=== PATIENT | female | born 1945 | race Caucasian/White ===

== ENCOUNTER 2018-05-02 11:01 | Observation (INO) ==
--- NOTE | 2018-05-02 11:36 | ED ---
HPI General Chief Complaint: Chest Pain Stated Complaint: chest pain Time Seen by Provider: 05/02/18 11:27 Source: patient and RN notes reviewed Mode of arrival: ambulatory Limitations: no limitations History of Present Illness HPI narrative: 72-year-old female presents to the emergency department for evaluation of chest pain that started this morning. She states that after hinduism, she went home. She felt she had to have a bowel movement. After coming out of the bathroom she started with midsternal chest pressure and belching. Patient states that she went back and had a bowel movement, but the chest pain did not stop. She states that she was diaphoretic as well. She states that she had associated shortness of breath with the pain. She states on her way to the hospital, the pain mostly resolved. She currently has 1/10 pressure to the midsternal chest. Patient denies any exacerbating or alleviating factors. She has history of hypothyroidism and is on levothyroxine. She denies any other medical problems. Patient denies any alcohol, tobacco, drug use. Patient denies having any recent stress test or cardiac catheterization. She denies any recent surgery or travel. No leg edema. No hemoptysis. No history DVT or PE. MD complaint: chest pain Complete Quality Measures for STEMI Alert Patients STEMI Alert: No Onset (ago): hour(s) Duration: improved Onset: other (after going to [place]) Pain location: substernal Severity: moderate Severity scale (1-10): 1 Quality: heaviness Pain radiation: none Relieving factors: nothing Exacerbating factors: nothing Associated symptoms: diaphoresis Treatments prior to arrival chest pain: none Related Data Home Medications Medication Instructions Recorded Confirmed levothyroxine 75 mcg PO DAILY 05/02/18 05/02/18 Allergies Allergy/AdvReac Type Severity Reaction Status Date / Time No Known Allergies Allergy Unknown none Uncoded 05/02/18 11:21 Review of Systems ROS: all other systems reviewed are negative [facility] Medical History Medical History History of hysterectomy (Acute) Hypothyroid (Acute) Surgical History Surgical History History of cholecystectomy (Acute) Social History Social History Substance History: No History of Abuse Second Hand Smoke Exposure: No Smoking Status: Never smoker How Often Do You Have a Drink Containing Alcohol: Never Recent Travel in [facility] within the Last 8 Weeks: No Recent Out of Country Travel within the Last 8 Weeks: No Immunization History Tetanus Immunization: <5 Years Tetanus Immunization Year if Known: 04/10 Hx Influenza Vaccine This Season: Yes Exam Narrative Exam Narrative: GENERAL: Well-nourished, well-developed female patient, ambulatory. Afebrile. SKIN: Focused skin assessment warm/dry. HEAD: Normocephalic. Atraumatic. EYES: No scleral icterus. No injection or drainage. NECK: Supple, trachea midline. No JVD or lymphadenopathy. CARDIOVASCULAR: Regular rate and rhythm without murmurs, gallops, or rubs. Bilateral radial and pedal pulses are 2+ RESPIRATORY: Breath sounds equal bilaterally. No accessory muscle use. Lung sounds are clear to auscultation. GASTROINTESTINAL: Abdomen soft, non-tender, nondistended. MUSCULOSKELETAL: No cyanosis, or edema. BACK: Nontender without obvious deformity. No CVA tenderness. Course Initial Documented Vital Signs Temperature 97.5 F L 05/02/18 11:05 Pulse Rate 81 05/02/18 11:05 Respiratory Rate 16 05/02/18 11:05 Blood Pressure 146/60 H 05/02/18 11:05 Pulse Oximetry 100 05/02/18 11:05 Last Documented Vital Signs Temperature 97.5 F L 05/02/18 11:05 Pulse Rate 76 05/02/18 11:21 Respiratory Rate 16 05/02/18 11:21 Blood Pressure 168/78 H 05/02/18 11:21 Pulse Oximetry 98 05/02/18 11:39 Medical Decision Making MDM Narrative Medical decision making narrative: 72-year-old female presents to the emergency department for evaluation of chest pressure/heaviness that started today. He does appear well on exam. Patient is given aspirin 162 mg p.o. IV access is obtained. CBC, CMP, CK, troponin, magnesium, PTT, PT/INR, chest x-ray are ordered and pending. CBC shows leukocytosis of 14.2. CMP is unremarkable. CK is 47. Troponin is less than 0.02. Magnesium is 2.1. PTT is 25.4. PT/INR is 10.7/1.1. Chest x- ray is negative. Patient will be admitted to the chest pain center for further evaluation. She agrees to this. Medical Screen Exam Complete: Yes Emergency Medical Condition: Yes Differential Diagnosis Differential Diagnosis: ACS versus GERD versus chest wall pain versus anxiety versus pneumonia versus pneumothorax Medical Records Medical records reviewed: Yes I reviewed the patient's medical records. Lab Data Result diagrams: 05/02/18 11:45 05/02/18 11:45 Lab Results 05/02/18 05/02/18 05/02/18 Range/Units 11:45 11:45 11:45 WBC 14.2 H (4.0-11.0) th/mm3 RBC 4.96 (4.00-5.30) mil/mm3 Hgb 13.0 (11.6-15.3) gm/dL Hct 39.7 (35.0-46.0) % MCV 80.0 (80.0-100.0) fL MCH 26.3 L (27.0-34.0) pg MCHC 32.8 (32.0-36.0) % RDW 16.2 (11.6-17.2) % Plt Count 420 (150-450) th/mm3 MPV 7.2 (7.0-11.0) fL Neut % (Auto) 68.9 (16.0-70.0) % Lymph % (Auto) 22.6 (9.0-44.0) % [place] % (Auto) 7.0 (0.0-8.0) % Eos % (Auto) 0.9 (0.0-4.0) % Baso % (Auto) 0.6 (0.0-2.0) % Neut # (Auto) 9.8 H (1.8-7.7) th/mm3 Lymph # (Auto) 3.2 (1.0-4.8) th/mm3 [place] # (Auto) 1.0 H (0.0-0.9) th/mm3 Eos # (Auto) 0.1 (0.0-0.4) th/mm3 Baso # (Auto) 0.1 (0.0-0.2) th/mm3 WBC Differential . Differential Comment Auto diff final PT 10.7 (9.8-11.6) sec INR 1.1 Ratio APTT 25.4 (24.3-30.1) sec Sodium 138 (136-145) meq/L Potassium 3.8 (3.5-5.1) meq/L Chloride 102 (98-107) meq/L Carbon Dioxide 27.8 (21.0-32.0) meq/L Anion Gap 8 (5-15) meq/L BUN 12 (7-18) mg/dL Creatinine 0.82 (0.50-1.00) mg/dL Estimated GFR 68 L (>89) mL/min Random Glucose 88 (74-106) mg/dL Calcium 8.8 (8.5-10.1) mg/dL Magnesium 2.1 (1.5-2.5) mg/dL Total Bilirubin 0.4 (0.2-1.0) mg/dL AST 18 (15-37) U/L ALT 17 (10-53) U/L Alkaline Phosphatase 72 (45-117) U/L Total Creatine Kinase 47 (26-192) U/L Troponin I Less than 0.02 L (0.02-0.05) ng/mL Total Protein 7.9 (6.4-8.2) g/dL Albumin 3.1 L (3.4-5.0) g/dL Lipase 102 (73-393) U/L Imaging Data Radiologist's impression: Chest X-Ray 05/02/18 11:34 CONCLUSION: Negative examination. Discharge Plan Discharge Disposition Patient Disposition: 30 Still Patient Discharge Details Diagnosis: Chest pain Physicians Team ED Provider: [facility] ED Midlevel Provider: Merly Tripp Primary Care Provider: Umesh Aguirre Rxs /Orders / Referrals /Forms Prescriptions: No Action levothyroxine 75 mcg Tablet 75 mcg PO DAILY RF: 0 Discharge Instructions Patient Printed Instructions: Chest Pain (ED) Status ED Status: With Doctor
--- NOTE | 2018-05-02 11:49 | XR ---
EXAM DATE: 05/02/2018 11:44 AM EDT AGE/SEX: 72 years / Female INDICATIONS: Chest pain CLINICAL DATA: This is the patient's initial encounter. Patient reports that signs and symptoms have been present for 1 day and indicates a pain score of 0/10. MEDICAL/SURGICAL HISTORY: None. None. COMPARISON: No prior exams available for comparison. FINDINGS: A single AP view of the chest demonstrates the lungs to be symmetrically aerated without evidence of mass, infiltrate or effusion. The cardiomediastinal contours are unremarkable. Osseous structures a re intact. CONCLUSION: Negative examination. Electronically signed by: Breana Chaves MD 05/02/2018 11:48 AM EDT
[2018-05-02 12:08] LABS: Baso # (Auto) 0.1 th/mm3 (0.0-0.2); Baso % (Auto) 0.6 % (0.0-2.0); Eos # (Auto) 0.1 th/mm3 (0.0-0.4); Eos % (Auto) 0.9 % (0.0-4.0); Hematocrit 39.7 % (35.0-46.0); Lymph # (Auto) 3.2 th/mm3 (1.0-4.8); Lymph % (Auto) 22.6 % (9.0-44.0); Mean Corpuscular HGB Conc 32.8 % (32.0-36.0); Mean Corpuscular Hemoglobin 26.3 pg (27.0-34.0); Mean Platelet Volume 7.2 fL (7.0-11.0); Neut # (Auto) 9.8 th/mm3 (1.8-7.7); Neut % (Auto) 68.9 % (16.0-70.0); Platelet Count 420 th/mm3 (150-450); Red Blood Count 4.96 mil/mm3 (4.00-5.30); Red Cell Distribution Width 16.2 % (11.6-17.2); White Blood Count 14.2 th/mm3 (4.0-11.0)
[2018-05-02 12:18] LABS: Activated Partial Thrombo Time 25.4 sec (24.3-30.1); INR 1.1 Ratio; Prothrombin Time 10.7 sec (9.8-11.6)
[2018-05-02 12:22] LABS: Alanine Aminotransferase 17 U/L (10-53); Albumin 3.1 g/dL (3.4-5.0); Anion Gap 8 meq/L (5-15); Aspartate Aminotransferase 18 U/L (15-37); Blood Urea Nitrogen 12 mg/dL (7-18); Calcium 8.8 mg/dL (8.5-10.1); Carbon Dioxide 27.8 meq/L (21.0-32.0); Chloride 102 meq/L (98-107); Glomerular Filtration Rate 68 mL/min (>89); Glucose,Random 88 mg/dL (74-106); Lipase 102 U/L (73-393); Magnesium 2.1 mg/dL (1.5-2.5); Potassium 3.8 meq/L (3.5-5.1); Sodium 138 meq/L (136-145)
[2018-05-02 12:27] LABS: Alkaline Phosphatase 72 U/L (45-117); Total Protein 7.9 g/dL (6.4-8.2)
[2018-05-02 12:30] LABS: Creatine Kinase 47 U/L (26-192)
--- NOTE | 2018-05-02 13:43 | P.HPCA ---
History of Present Illness Primary Care Physician: Umesh Aguirre MD Chief Complaint: Chest pressure History of Present Illness: 72 year old female with history of hypothyroidism presents to ER for further evaluation of nonexertional chest pressure. Onset 11 AM. Characterizes pressure. Location substernal. No radiation. Gradually onset with pressure becoming severe within 5 minutes, gradually resolved within 45 minutes. Became diaphoretic and endorses frequent belching. No associated symptoms of nausea, vomiting, or dyspnea. No precipitating or relieving factors. Denies similar pain in the past. No known coronary artery disease, hypertension, hyperlipidemia or diabetes. No recent illness, fever, cough, or injury. No history of GERD. Past cardiac testing None Social history . 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 No known CAD, hypertension, hyperlipidemia, or diabetes. Family history Noncontributory for early onset cardiovascular disease. Father required CABGc4 age 80, lived until age 94. - Diagnosis (1) Chest pain of uncertain etiology (2) Hypothyroidism Review of Systems All other systems reviewed negative except as stated in HPI PMFSH - History History Provided By: Patient - Medical History Medical History: Medical History (Last Updated 05/02/18 @ 13:40 by AIDAN Garrett) History of hysterectomy (Acute) Hypothyroid - Family History Family History: Family History (Last Updated 05/02/18 @ 13:41 by AIDAN Garrett) Father History of four vessel coronary artery bypass graft - Social History I have reviewed the patient's Social History: Yes - Tobacco History Second Hand Smoke Exposure: No Tobacco Use In Past 30 Days: No Smoking Status: Never smoker - Alcohol History How Often Do You Have a Drink Containing Alcohol: Never - Substance Use History Substance History: No History of Abuse - Travel History Recent Travel in the [facility] Within the Last 8 Weeks: No Recent Travel Out of the Country Within the Last 8 Weeks: No - Immunization History Tetanus Immunization: <5 Years Tetanus Immunization Year if Known: 04/10 Hx Influenza Vaccine This Season: Yes Medications and Allergies Active Medications: Active Medications Sodium Chloride (Ns Flush) 2 ml IV.FLUSH UNSCH PRN PRN Reason: FLUSH AFTER USING IV ACCESS Sodium Chloride (Ns Flush) 2 ml IV.FLUSH BID CARLOS Allergies Allergy/AdvReac Type Severity Reaction Status Date / Time No Known Allergies Allergy Unknown none Uncoded 05/02/18 11:21 Home Medications Medication Instructions Recorded Confirmed Type levothyroxine 75 mcg PO DAILY 05/02/18 05/02/18 History Exam Vital signs: Vital Signs 05/02/18 11:05 05/02/18 11:21 05/02/18 11:39 Temperature 97.5 F L Pulse Rate 81 76 Respiratory Rate 16 16 Blood Pressure 146/60 H 168/78 H Pulse Oximetry 100 99 98 Intake & Output 05/01/18 05/02/18 05/02/18 18:59 06:59 18:59 Weight 65.771 kg Narrative: GENERAL: Alert WN, WD, NAD, pleasant, elderly female HEAD: NC, AT EYES: Sclera clear, conjunctiva without injection, pupils equal and round ENT: Mucous membranes pink and moist CV: RRR, without murmur, rub, gallop, no JVD, S1-S2 no S3-S4. Chest pain nontender to palpation. RESP: Clear lungs throughout bilateral, no crackles, wheeze, rhonchi, symmetrical chest rise, nonlabored, able to speak in full sentences ABD: Soft, NT, ND, no masses, positive bowel tones EXT: Pulses +2x4, no dependent edema MS: Normal tone x4 extremities, nontender, no obvious deformities, full range of motion NEURO: CN II through CN XII grossly intact, motor strength 5/5, gait WNL PSYCH: A+O x3, pleasant affect, appropriate speech, mood, insight and judgment SKIN: Normal turgor, normal texture, no lesions, no rashes, brisk cap refill, even hair distribution Results 05/02/18 11:45 05/02/18 11:45 Cardiac Enzymes 05/02/18 Range/Units 11:45 AST 18 (15-37) U/L Troponin I Less than 0.02 L (0.02-0.05) ng/mL Coagulation 05/02/18 Range/Units 11:45 PT 10.7 (9.8-11.6) sec APTT 25.4 (24.3-30.1) sec CBC 05/02/18 Range/Units 11:45 WBC 14.2 H (4.0-11.0) th/mm3 RBC 4.96 (4.00-5.30) mil/mm3 Hgb 13.0 (11.6-15.3) gm/dL Hct 39.7 (35.0-46.0) % Plt Count 420 (150-450) th/mm3 Neut # (Auto) 9.8 H (1.8-7.7) th/mm3 Lymph # (Auto) 3.2 (1.0-4.8) th/mm3 [place] # (Auto) 1.0 H (0.0-0.9) th/mm3 Eos # (Auto) 0.1 (0.0-0.4) th/mm3 Baso # (Auto) 0.1 (0.0-0.2) th/mm3 Comprehensive Metabolic Panel 05/02/18 Range/Units 11:45 Sodium 138 (136-145) meq/L Potassium 3.8 (3.5-5.1) meq/L Chloride 102 (98-107) meq/L Carbon Dioxide 27.8 (21.0-32.0) meq/L BUN 12 (7-18) mg/dL Creatinine 0.82 (0.50-1.00) mg/dL Calcium 8.8 (8.5-10.1) mg/dL AST 18 (15-37) U/L ALT 17 (10-53) U/L Alkaline Phosphatase 72 (45-117) U/L Total Protein 7.9 (6.4-8.2) g/dL Albumin 3.1 L (3.4-5.0) g/dL Intake and Output 05/01/18 05/02/18 05/02/18 22:59 06:59 14:59 Other: Weight 65.771 kg Patient Weight 05/03/18 06:59 Weight 65.771 kg EKG interpretations - EKG EKG results cardiology: normal axis, normal QRS, normal ST/T Caprini VTE Risk Assessment Caprini VTE Risk Assessment: Moderate/High Risk (score >= 2) Caprini Risk Assessment Model: Point Value = 1 Point Value = 2 Point Value = 3 Point Value = 5 Age 41-60 Minor surgery BMI > 25 kg/m2 Swollen legs Varicose veins or History of unexplained or recurrent spontaneous Oral contraceptives or hormone replacement Sepsis (< 1 month) Serious lung disease, including pneumonia (< 1 month) Abnormal pulmonary function Acute myocardial infarction Congestive heart failure (< 1 month) History of inflammatory bowel disease Medical patient at bed rest Age 61-74 Arthroscopic surgery Major open surgery (> 45 min) Laparoscopic surgery (> 45 min) Malignancy Confined to bed (> 72 hours) Immobilizing plaster cast Central venous access Age >= 75 History of VTE Family history of VTE Factor V Leiden Prothrombin [id number] Lupus anticoagulant Anticardiolipin antibodies Elevated serum homocysteine Heparin-induced thrombocytopenia Other congenital or acquired thrombophilia Stroke (< 1 month) Elective arthroplasty Hip, pelvis, or leg fracture Acute spinal cord injury (< 1 month) Prophylaxis Regimen: Total Risk Factor Score Risk Level Prophylaxis Regimen 0-1 Low Early ambulation 2 Moderate Order ONE of the following: *Sequential Compression Device (SCD) *Heparin 5000 units SQ BID 3-4 Higher Order ONE of the following medications: *Heparin 5000 units SQ TID *Enoxaparin/Lovenox 40 mg SQ daily (WT < 150 kg, CrCl > 30 mL/min) *Enoxaparin/Lovenox 30 mg SQ daily (WT < 150 kg, CrCl > 10-29 mL/min) *Enoxaparin/Lovenox 30 mg SQ BID (WT < 150 kg, CrCl > 30 mL/min) AND/OR *Sequential Compression Device (SCD) 5 or more Highest Order ONE of the following medications: *Heparin 5000 units SQ TID (Preferred with Epidurals) *Enoxaparin/Lovenox 40 mg SQ daily (WT < 150 kg, CrCl > 30 mL/min) *Enoxaparin/Lovenox 30 mg SQ daily (WT < 150 kg, CrCl > 10-29 mL/min) *Enoxaparin/Lovenox 30 mg SQ BID (WT < 150 kg, CrCl > 30 mL/min) AND *Sequential Compression Device (SCD) Assessment and Plan - Assessment (1) Chest pain of uncertain etiology Code(s): R07.89 - Other chest pain Status: Acute Plan: Admitted chest pain center. Continue ruling out ACS initiated in ER. Will be seen evaluated by Dr. Patrick Acuña. Discussed likely will proceed with exercise cardiac testing if ACS ruled out. This will be determined after evaluation by manager organizational. Verbalized understanding and agreeable to plan of care. (2) Hypothyroidism Code(s): E03.9 - Hypothyroidism, unspecified Status: Chronic Plan: Continue levothyroxine. (2) Hypothyroidism Qualifiers: Hypothyroidism type: unspecified Qualified Code(s): E03.9 - Hypothyroidism, unspecified
--- NOTE | 2018-05-02 13:59 | P.PNCA ---
Subjective Interval history: Very pleasant 72-year-old lady who developed low midsternal chest discomfort this morning after coming home from [facility]. This was associated with a cold sweat and slight sense of difficulty breathing. She has no prior history of heart disease basically healthy aside from hypothyroidism. She is followed regularly at six-month intervals by Dr. Brown. Agree with the documentation as entered by nurse practitioner. Plan for evaluation and treatment was discussed and agreed upon consistent with chest pain center protocol. Physical Exam Vital signs: Vital Signs 05/02/18 11:05 05/02/18 11:21 05/02/18 11:39 Temperature 97.5 F L Pulse Rate 81 76 Respiratory Rate 16 16 Blood Pressure 146/60 H 168/78 H Pulse Oximetry 100 99 98 Intake & Output 05/01/18 05/02/18 05/02/18 18:59 06:59 18:59 Weight 65.771 kg Narrative: Well-nourished well-developed lady alert cooperative with no complaints at this time Head normocephalic atraumatic Eyes PERRLA EOMI intraocular lens noted Mouth mucous membranes moist and well papillated partial plate in place Neck supple no JVD masses nodes or bruits Chest clear to auscultation with no rales wheezes or rhonchi Cardiovascular PMI is not displaced regular rhythm no gallop rub or murmur Abdomen soft nontender no guarding or rebound no hepatosplenomegaly Extremities no clubbing cyanosis or edema no tenderness and pulses are intact Neurologic and psychiatric not evaluated but appear to be normal Assessment and Plan - Assessment (1) Chest pain of uncertain etiology Code(s): R07.89 - Other chest pain Status: Acute Plan: Admitted chest pain center. Continue ruling out ACS initiated in ER. Will be seen evaluated by Dr. Patrick Acuña. Discussed likely will proceed with exercise cardiac testing if ACS ruled out. This will be determined after evaluation by hoseman. Verbalized understanding and agreeable to plan of care. (2) Hypothyroidism Code(s): E03.9 - Hypothyroidism, unspecified Status: Chronic Plan: Continue levothyroxine. (2) Hypothyroidism Qualifiers: Hypothyroidism type: unspecified Qualified Code(s): E03.9 - Hypothyroidism, unspecified
[2018-05-02 15:46] LABS: Creatine Kinase 84 U/L (26-192)
[2018-05-02 18:40] LABS: Creatine Kinase 31 U/L (26-192)
[2018-05-03] MEDS ORDERED: Levothyroxine 75 MCG Tablet PO SCH (06:00)
--- NOTE | 2018-05-03 13:55 | ECG ---
Date Performed: 05/02/2018 Time Performed: 17:51:26 PTAGE: 72 years EKG: Sinus rhythm WITH SINUS ARRHYTHMIA POSSIBLE LEFT ATRIAL ENLARGEMENT BORDERLINE ECG INTERPRETATION BASED ON A DEFA ULT AGE OF 40 YEARS NO PREVIOUS TRACING DOCTOR: Gallo De Oliveira Interpretating Date/Time 05/03/2018 13:54:16
--- NOTE | 2018-05-03 13:56 | ECG ---
Date Performed: 05/02/2018 Time Performed: 11:16:54 PTAGE: 72 years EKG: Sinus rhythm POSSIBLE LEFT ATRIAL ENLARGEMENT BORDERLINE ECG NO PREVIOUS TRACING DOCTOR: Gallo De Oliveira Interpretating Date/Time 05/03/2018 13:54:46
--- NOTE | 2018-05-03 13:56 | ECG ---
Date Performed: 05/02/2018 Time Performed: 14:43:01 PTAGE: 72 years EKG: Sinus rhythm WITH OCCASIONAL SUPRAVENTRICULAR PREMATURE COMPLEXES POSSIBLE LEFT ATRIAL ENLARGEMENT BORDERLINE ECG INTERPRETATION BASED ON A DEFAULT AGE OF 39 YEARS NO PREVIOUS TRACING DOCTOR: Gallo De Oliveira Interpretating Date/Time 05/03/2018 13:54:30
--- NOTE | 2018-05-03 13:57 | TR ---
Date Performed: 05/03/2018 Time Performed: 09:12:47 DOCTOR: Gallo De Oliveira DRUG LIST: CLINICAL HISTORY: REASON FOR TEST: REASON FOR ENDING: OBSERVATION: CONCLUSION: TATIANNA PROTOCOL. NO CP. TEST STOPPED AFTER EXCEEDING GOAL HR SECONDARY TO SOB AND LEG FATIGUE.Maximum RT=140 Target SF=860 % Max HR Tpxqtcjp=330.0% Maximum JM=755/76 COMMENTS: Patient exercised using the Tatianna protocol. No electrocardiographic changes were seen to suggest ischemia. Hemodynamic response to exercise was normal. No significant arrhythmia was prese nt.
== END 2018-05-03 10:59 | disposition home or self-care (01) ==
LOC: NEDA 11:01 → NEPC 11:01 → NEPGCP 13:39
PROVIDERS: ADMIT Internal Medicine Interventional Cardiology; ATTEND Internal Medicine Interventional Cardiology